=== PATIENT | female | born 1980 | race Caucasian/White ===

== ENCOUNTER 2022-06-11 21:49 | Emergency (ER) | payer MEDICAID ==
[~2022-06-11] VITALS: Ht 157.5 cm; Wt 66.0 kg
[~2022-06-11 21:49] MED LIST: IBUP-2029; SULF1TAB48 PO
[2022-06-11] MEDS ORDERED: OXYC-100 PO (23:15)
[2022-06-11] MEDS ORDERED: HYDR30CR80 TP (23:15)
[2022-06-11] MEDS ORDERED: OXYCODONE HCL/ACETAMINOPHEN 5/325MG TABLET PO ONE (23:15)
[2022-06-11] MEDS ORDERED: DOCU-138 PO (23:17)
[2022-06-12 00:30] VITALS: BP 125/85
== END 2022-06-12 00:40 | disposition home or self-care (01) ==
LOC: ER 21:49
DX: K62.89 Other specified diseases of anus and rectum (principal)
CPT/HCPCS: 99283